=== PATIENT | female | born 1955 | race Caucasian/White ===

== ENCOUNTER 2017-04-01 13:32 | Emergency (ER) | payer BC, OTHER ==
[2017-04-01] MEDS ORDERED: Diph,Pert(Acell),Tet Vac 0.5 ML SYR IM ONE (13:40)
--- NOTE | 2017-04-01 14:40 | Emergency Department Record ---
History of Present Illness - General Chief Complaint: Fall Injury Stated Complaint: FALL TRIPPED,LACERATION ON LIP,LT HIP PAIN Time Seen by Provider: 04/01/17 14:30 Mode of Arrival: Ambulatory - History of Present Illness Initial Comments: fell at home and twisted when she went to the floor and cut her lip on the table and she has a 3 cm laceration of the lower lip. Pain in the left hip. . Complaint: Fall Onset/Timin -: Minutes(s) Fall From: Standing When Fall Occurred: Just prior to arrival Fall Witnessed: Yes, by family Place Fall Occurred: Home Loss of Consciousness: None Prolonged Down Time?: No Symptoms Prior to Fall: None Location: Face Severity: Moderate Severity scale (1-10): 2 Quality: Aching Context: Tripped/slipped Associated Symptoms: Denies - [place] Coma Scale Eye Response: (4) Open spontaneously Motor Response: (6) Obeys commands Verbal Response: (5) Oriented [place] Total: 15 - Related Data Home Medications Medication Instructions Recorded Confirmed Last Taken Aspirin [Adult Low Dose Aspirin EC] 81 mg PO DAILY 04/01/17 04/01/17 04/01/17 Atorvastatin Calcium [Lipitor] 20 mg PO 04/01/17 03/31/17 B-Complex with Vitamin C [Super B 1 tab PO DAILY 04/01/17 04/01/17 04/01/17 with Vit C] Calcium Citrate/Vitamin D3 1 tab PO DAILY 04/01/17 04/01/17 04/01/17 [Citracal-Vit D 250 mg-200 Tab] Diltiazem HCl [Cardizem LA] 360 mg PO 04/01/17 Unknown Diltiazem HCl [Diltiazem 24Hr ER] 1 tab PO ASDIR 04/01/17 04/01/17 04/01/17 Glucosamine/D3/Boswellia Joceline 1 each PO DAILY 04/01/17 04/01/17 04/01/17 [Osteo Bi-Flex Tablet] Loratadine 10 mg PO DAILY 04/01/17 04/01/17 03/31/17 Metformin HCl [Metformin HCl] 850 mg PO BID 04/01/17 04/01/17 04/01/17 Tramadol HCl [Tramadol HCl] 50 mg PO ASDIR 04/01/17 04/01/17 04/01/17 Ubidecarenone [Coq-10] 100 mg PO DAILY 04/01/17 04/01/17 04/01/17 Valsartan/Hydrochlorothiazide 1 tab PO ASDIR 04/01/17 04/01/17 Unknown [Valsartan-Hctz 320-25 mg Tab] Zolpidem Tartrate [Ambien Cr] 12.5 mg PO QHS 04/01/17 04/01/17 03/31/17 Allergies Allergy/AdvReac Type Severity Reaction Status Date / Time ampicillin Allergy HIVES Verified 04/01/17 13:40 morphine Allergy RASH Verified 04/01/17 13:40 Travel Screening - Travel/Exposure Within Last 30 Days Have you traveled within the last 30 days?: No - Travel/Exposure Within Last Year Have you traveled outside the [place] in the last year?: No - Additonal Travel Details Have you been exposed to anyone with a communicable illness?: No - Travel Symptoms Symptom Screening: None Review of Systems Reviewed: No additional complaints except as noted below Constitutional: Reports: As per HPI. Denies: Chills, Fever, Malaise, Night sweats, Weakness, Weight change Eyes: Reports: As per HPI. Denies: Eye discharge, Eye pain, Photophobia, Vision change ENT: Reports: As per HPI. Denies: Congestion, Dental pain, Ear pain, Epistaxis , Hearing loss, Throat pain Respiratory: Reports: As per HPI. Denies: Cough, Dyspnea, Hemoptysis, Stridor, Wheezes Cardiovascular: Reports: As per HPI. Denies: Arrhythmia, Chest pain, Dyspnea on exertion, Edema, Murmurs, Orthopnea, Palpitations, Paroxysmal nocturnal dyspnea, Rheumatic Fever, Syncope Endocrine: Reports: As per HPI. Denies: Fatigue, Heat or cold intolerance, Polydipsia, Polyuria Gastrointestinal: Reports: As per HPI. Denies: Abdominal pain, Constipation, Diarrhea, Hematemesis, Hematochezia, Melena, Nausea, Vomiting Genitourinary: Reports: As per HPI. Denies: Abnormal menses, Discharge, Dyspareunia, Dysuria, Frequency, Hematuria, Incontinence, Retention, Urgency Musculoskeletal: Reports: As per HPI. Denies: Arthralgia, Back pain, Gout, Joint swelling, Myalgia, Neck pain Skin: Reports: As per HPI. Denies: Bruising, Change in color, Change in hair/ nails, Lesions, Pruritus, Rash Neurological: Reports: As per HPI. Denies: Abnormal gait, Confusion, Headache, Numbness, Paresthesias, Seizure, Tingling, Tremors, Vertigo, Weakness Psychiatric: Reports: As per HPI. Denies: Anxiety, Auditory hallucinations, Depression, Homicidal thoughts, Suicidal thoughts, Visual hallucinations Hematological/Lymphatic: Reports: As per HPI. Denies: Anemia, Blood Clots, Easy bleeding, Easy bruising, Swollen glands Past Medical History - SOCIAL HISTORY Smoking Status: Never smoker Alcohol Use: None Drug Use: None - RESPIRATORY Hx Respiratory Disorders: No - CARDIOVASCULAR Hx Cardio Disorders: Yes Hx Hypertension: Yes - NEURO Hx Neuro Disorders: No - GI Hx GI Disorders: No - Hx Genitourinary Disorders: No - ENDOCRINE Hx Endocrine Disorders: Yes Hx Diabetes: Yes - MUSCULOSKELETAL Hx Musculoskeletal Disorders: Yes Hx Arthritis: Yes - PSYCH Hx Psych Problems: No - HEMATOLOGY/ONCOLOGY Hx Hematology/Oncology Disorders: Yes Hx Chemotherapy: Yes Hx Radiation Therapy: Yes Family Medical History Any Significant Family History?: No Physical Exam - General General Appearance: Alert, Oriented x3, Cooperative, No acute distress - Head Head exam: Normal inspection - Eye Eye exam: Normal appearance, PERRL Pupils: Normal accommodation - ENT ENT exam: Normal exam, Mucous membranes moist, Normal external ear exam, Normal orophraynx, TM's normal bilaterally Ear exam: Normal external inspection. negative: External canal tenderness Nasal Exam: Normal inspection. negative: Discharge, Sinus tenderness Mouth exam: Normal external inspection, Tongue normal Teeth exam: Normal inspection. negative: Dental caries Throat exam: Normal inspection. negative: Tonsillar erythema, Tonsillar exudate - Neck Neck exam: Normal inspection, Full ROM. negative: Tenderness - Respiratory Respiratory exam: Normal lung sounds bilaterally. negative: Respiratory distress - Cardiovascular Cardiovascular Exam: Regular rate, Normal rhythm, Normal heart sounds - GI/Abdominal GI/Abdominal exam: Soft, Normal bowel sounds. negative: Tenderness - Rectal Rectal exam: Deferred - exam: Deferred - Extremities Extremities exam: Normal inspection, Full ROM, Normal capillary refill, Tenderness (left hip pain) - Back Back exam: Reports: Normal inspection, Full ROM. Denies: Muscle spasm, Rash noted, Tenderness - Neurological Neurological exam: Alert, Normal gait, Oriented X3, Reflexes normal - Psychiatric Psychiatric exam: Normal affect, Normal mood - Skin Skin exam: Dry, Intact, Normal color, Warm, Other (laceration of the lower lip through the [place] border) Course Vital Signs 04/01/17 13:54 Temperature 98.2 F Pulse Rate 82 Respiratory 18 Rate Blood Pressure 139/90 Pulse Ox 98 - Reevaluation(s) Reevaluation #1: laceration repair ,1% lidocaine with epi, no Foreign bodies seen,teeth intact cleaned wound with shurclense repaired 3 cm laceration of the lower lip through [place]millian border two layer closure vicryl in SQ times one suture 6.0 ethilon times 5 sutures( two on mucosal skin and three on skin) 04/01/17 14:34 04/01/17 15:13 04/01/17 15:27 Reevaluation #2: discussed case with DR. Ruby and will transfer to [facility] and will call [facility]. 04/01/17 15:43 Medical Decision Making - Data Complexity MDM Data: X-Ray Ordered and/or Reviewed (fracture of the hip around the prothesis) - Lab Data Result diagrams: 04/01/17 15:16 04/01/17 15:16 Disposition Clinical Impression: Hip fracture Qualifiers: Encounter type: initial encounter Fracture type: closed Laterality: left Qualified Code(s): S72.002A - Fracture of unspecified part of neck of left femur , initial encounter for closed fracture Laceration of lip Qualifiers: Encounter type: initial encounter Qualified Code(s): S01.511A - Laceration without foreign body of lip, initial encounter Disposition: Acute Care Hospital Transfer Condition: (2) Stable Forms: Patient Portal Access Time of Disposition: 15:45 Quality - Quality Measures Quality Measures: N/A - Blood Pressure Screening Does Patient Have Any of the Following: No Blood Pressure Classification: Hypertensive Reading Systolic Measurement: 139 Diastolic Measurement: 90 Screening for High Blood Pressure: < Pre-Hypertensive BP, F/U Documented > [ G8950] Pre-Hypertensive Follow-up Interventions: Referral to alternative/primary care provider.
[2017-04-01] MEDS ORDERED: 0.9 % SODIUM CHLORIDE 1000ML 1,000 ML IV ONE (15:17)
[2017-04-01 15:57] LABS: BASO % 0.4 % (0-6); EOS % 0.9 % (0-6); GRAN % 76.4 % (47-80); HEMATOCRIT 42.3 % (35.0-47.0); HEMOGLOBIN 14.5 gm/dl (11.6-16.0); MEAN CELL VOLUME 86.3 fl (81-97); MEAN CORPUSCULAR HEMOGLOBIN 29.6 pg (27-33); MEAN CORPUSCULAR HGB CONC 34.3 g/dl (32-36); MEAN PLATELET VOLUME 8.6 fl (7.4-10.4); MONO % 5.3 % (0-9); PLATELET COUNT 252 K/uL (130-400); RED CELL DISTRIBUTION WIDTH 12.6 % (11.5-14.5); WHITE BLOOD COUNT W/O DIFF 9.8 K/uL (4.2-12.2)
[2017-04-01] MEDS ORDERED: KETOROLAC 30 MG/ML VIAL IVP ONE (16:07)
[2017-04-01 16:10] LABS: INR 0.94; PARTIAL THROMBOPLASTIN TIME 18.9 SECONDS (24.5-39.1); PROTHROMBIN TIME (PATIENT) 10.1 SECONDS (9.5-12.1)
[2017-04-01 16:39] LABS: BLOOD UREA NITROGEN 13 mg/dL (8-23); CREATININE 0.6 mg/dL (0.5-0.9); EST GLOMERULAR FILTRATION RATE > 60 mL/min; GLUCOSE,RANDOM 142 mg/dL (74-109)
--- NOTE | 2017-04-02 19:37 | RADIOLOGY REPORT ---
EXAM: HIP,UNILAT, 2-3 VIEW LEFT HISTORY: PAIN POST FALL. BILATERAL HIP ARTHROPLASTIES. TECHNIQUE: An AP view of the pelvis is obtained as well as AP and frog-leg lateral views of the left hip. COMPARISON: None. ENCOUNTER: Initial. FINDINGS: There is diffuse osteopenia. Bilateral total hip arthroplasty changes are identified. There is mild lucency involving the bone/prosthesis interface involving the distal aspect of the post of the left femoral prosthesis component including its tip. A nondisplaced fracture of the proximal left femoral shaft is visualized with minimal stepoff of the lateral cortical surface. On the frog-leg lateral view, there does appear to be a nondisplaced component extending into the distal aspect of the lesser trochanter. No other fracture is seen, nor is there dislocation. There are mild degenerative changes of the sacroiliac joint. There are moderate advanced degenerative changes of the lower lumbar spine. IMPRESSION: 1. BILATERAL TOTAL HIP ARTHROPLASTIES. 2. ACUTE NONDISPLACED FRACTURE OF THE PROXIMAL SHAFT OF THE LEFT FEMUR JUST DISTAL TO THE TROCHANTERS, THOUGH THERE DOES APPEAR TO BE A FRACTURE COMPONENT INVOLVING THE MID TO DISTAL ASPECT OF THE LESSER TROCHANTER. 3. NO OTHER FRACTURE NOR DISLOCATION. JOB NUMBER: [id number] [facility]
--- NOTE | 2017-04-03 07:53 | RADIOLOGY REPORT ---
EXAM: PORTABLE CHEST HISTORY: DIFFICULTY BREATHING. TECHNIQUE: A portable AP view of the chest was obtained. Comparison: None. FINDINGS: The heart size is normal. Osteopenia. Surgical clips left axilla. Post surgical change right humerus. The lungs are clear. No pneumothorax. IMPRESSION: NO ACUTE CARDIOPULMONARY PROCESS. JOB NUMBER: [id number] [facility]
== END 2017-04-01 17:00 | disposition short-term general hospital (02) ==
LOC: ER 13:32
DX: S72.002A Fracture of unspecified part of neck of left femur, initial encounter for closed fracture (principal); S01.511A Laceration without foreign body of lip, initial encounter; I10 Essential (primary) hypertension; E11.9 Type 2 diabetes mellitus without complications; Z79.84 Long term (current) use of oral hypoglycemic drugs; W01.0XXA Fall on same level from slipping, tripping and stumbling without subsequent striking against object, initial encounter; Y92.009 Unspecified place in unspecified non-institutional (private) residence as the place of occurrence of the external cause; Z96.642 Presence of left artificial hip joint
CPT/HCPCS: 40650 ×2; 99285 ×2; 96374; 96372; 85025; 85730; 85610; 80048; 71010; 73502; J1885; 90715

== ENCOUNTER 2017-04-08 14:48 | Emergency (ER) | payer BC ==
--- NOTE | 2017-04-08 15:01 | Emergency Department Record ---
History of Present Illness - General Chief Complaint: Suture removal Stated Complaint: SUTURE REMOVAL, JOHNATHON Time Seen by Provider: 04/08/17 14:55 Source: Patient Mode of arrival: Wheelchair Limitations: No limitations - History of Present Illness Initial Comments: The patient is here due to have her sutures removed. She denies any problems. Complaint: Suture/staple removal Onset/Timin -: Week(s) Initial Visit For: Laceration Returns Today for: Staple/stitch removal Symptoms Since Prior Visit: No new symptoms Associated Symptoms: None - Related Data Allergies Allergy/AdvReac Type Severity Reaction Status Date / Time ampicillin Allergy HIVES Verified 04/01/17 13:40 morphine Allergy RASH Verified 04/01/17 13:40 Travel Screening - Travel/Exposure Within Last 30 Days Have you traveled within the last 30 days?: No Past Medical History - SOCIAL HISTORY Smoking Status: Never smoker Alcohol Use: None Drug Use: None - RESPIRATORY Hx Respiratory Disorders: No - CARDIOVASCULAR Hx Cardio Disorders: Yes Hx Hypertension: Yes - NEURO Hx Neuro Disorders: No - GI Hx GI Disorders: No - Hx Genitourinary Disorders: No - ENDOCRINE Hx Endocrine Disorders: Yes Hx Diabetes: Yes - MUSCULOSKELETAL Hx Musculoskeletal Disorders: Yes Hx Arthritis: Yes - PSYCH Hx Psych Problems: No - HEMATOLOGY/ONCOLOGY Hx Hematology/Oncology Disorders: Yes Hx Chemotherapy: Yes Hx Radiation Therapy: Yes Family Medical History Any Significant Family History?: No Physical Exam - General General Appearance: Alert, Cooperative, No acute distress - Head Head exam: Atraumatic - ENT ENT exam: Normal exam (The L lip sutures were removed with no difficulty.) Course Vital Signs 04/08/17 14:56 Temperature 98.7 F Pulse Rate 79 Respiratory 20 Rate Blood Pressure 141/73 Pulse Ox 96 Disposition Disposition: Discharge Clinical Impression: Visit for suture removal Disposition: Home, Self-Care Condition: (1) Good Instructions: Stitches Removal (ED) Additional Instructions: Return to the ER for any problems. Forms: Patient Portal Access Time of Disposition: 15:01 Quality - Quality Measures Quality Measures: N/A - Blood Pressure Screening View Details: Yes Does Patient Have Any of the Following: No Blood Pressure Classification: Hypertensive Reading Systolic Measurement: 141 Diastolic Measurement: 73 Screening for High Blood Pressure: < Normal BP, F/U Not Required > [G8783]
== END 2017-04-08 15:11 | disposition home or self-care (01) ==
LOC: ER 14:48
DX: Z48.02 Encounter for removal of sutures (principal)